=== PATIENT | female | born 1950 | race Caucasian/White ===

== ENCOUNTER 2018-05-25 07:15 | Observation (INO) ==
--- NOTE | 2018-05-25 08:08 | ED ---
HPI General Chief Complaint: Chest Pain Stated Complaint: Chest Pain Complaint Time Seen by Provider: 05/25/18 07:56 Source: patient Mode of arrival: ambulatory Limitations: no limitations History of Present Illness HPI narrative: 68-year-old female states that yesterday morning she developed chest tightness and having a hard time taking a deep breath. She denies prior history of this. She denies other associated symptoms. She states sometimes it goes up into her neck. She denies other migration of the pain. She denies specific modifying factors other than it hurts worse when she breathes. Quality is pressure. Severity is moderate. She denies recurrent history of this. She denies prior cardiac workup. She states that her father had a heart attack in his 60s but denies any other family history. She states she took a full aspirin today. Related Data Home Medications Medication Instructions Recorded Confirmed alendronate 70 mg PO QWEEK 05/25/18 05/25/18 aspirin 325 mg PO DAILY 05/25/18 05/25/18 Allergies Allergy/AdvReac Type Severity Reaction Status Date / Time No Known Allergies Allergy Verified 05/25/18 07:32 Review of Systems ROS: all other systems reviewed are negative [facility] Medical History Medical History Patient denies medical problems (Acute) Surgical History Surgical History History of laparotomy (Acute) History of tubal ligation (Acute) Hx of cholecystectomy (Acute) Social History Social History Substance History: No History of Abuse Second Hand Smoke Exposure: No Smoking Status: Never smoker How Often Do You Have a Drink Containing Alcohol: 2 to 3 times a week Recent Travel in [facility] within the Last 8 Weeks: No Recent Out of Country Travel within the Last 8 Weeks: No Exam Narrative Exam Narrative: GENERAL: 68 y/o female in no apparent distress SKIN: Focused skin assessment warm/dry. HEAD: Atraumatic. Normocephalic. EYES: Pupils equal and round. No scleral icterus. No injection or drainage. ENT: No nasal bleeding or discharge. Mucous membranes pink and moist. NECK: Trachea midline. CARDIOVASCULAR: Regular rate and rhythm. RESPIRATORY: No accessory muscle use. Clear to auscultation. Breath sounds equal bilaterally. GASTROINTESTINAL: Abdomen soft, non-tender, nondistended MUSCULOSKELETAL: No obvious deformities. No clubbing. No cyanosis. NEUROLOGICAL: Awake and alert. No obvious cranial nerve deficits. Motor grossly within normal limits. Normal speech. PSYCHIATRIC: Appropriate mood and affect; insight and judgment normal. Course Reevaluation(s) Reevaluation #1: Given elevated d-dimer will check CT and reevaluate. Patient' s blood pressure dropped after 1 nitroglycerin and she was given IV fluids and it improved Reevaluation #2: Patient updated and agrees to chest pain center observation Initial Documented Vital Signs Temperature 99.8 F H 05/25/18 07:21 Pulse Rate 91 H 05/25/18 07:21 Respiratory Rate 18 05/25/18 07:21 Blood Pressure 162/95 H 05/25/18 07:21 Pulse Oximetry 96 05/25/18 07:21 Last Documented Vital Signs Temperature 97.8 F 05/25/18 10:07 Pulse Rate 82 05/25/18 10:07 Respiratory Rate 16 05/25/18 10:07 Blood Pressure 124/74 05/25/18 10:07 Pulse Oximetry 97 05/25/18 10:07 Medical Decision Making MDM Narrative Medical decision making narrative: will check labs, xr, and dose with nitro and reeval Medical Screen Exam Complete: Yes Emergency Medical Condition: Yes Differential Diagnosis Differential Diagnosis: angina, pe, musculoskeletal.... Lab Data Lab results reviewed: Yes I reviewed the patient's lab results. Result diagrams: 05/25/18 07:21 05/25/18 07:21 Lab Results 05/25/18 05/25/18 05/25/18 Range/Units 07:21 07:21 07:21 WBC 9.1 (4.0-11.0) th/mm3 RBC 4.08 (4.00-5.30) mil/mm3 Hgb 13.2 (11.6-15.3) gm/dL Hct 38.7 (35.0-46.0) % MCV 94.8 (80.0-100.0) fL MCH 32.4 (27.0-34.0) pg MCHC 34.2 (32.0-36.0) % RDW 13.8 (11.6-17.2) % Plt Count 265 (150-450) th/mm3 MPV 8.9 (7.0-11.0) fL Neut % (Auto) 71.0 H (16.0-70.0) % Lymph % (Auto) 17.3 (9.0-44.0) % [place] % (Auto) 9.7 H (0.0-8.0) % Eos % (Auto) 1.2 (0.0-4.0) % Baso % (Auto) 0.8 (0.0-2.0) % Neut # (Auto) 6.5 (1.8-7.7) th/mm3 Lymph # (Auto) 1.6 (1.0-4.8) th/mm3 [place] # (Auto) 0.9 (0.0-0.9) th/mm3 Eos # (Auto) 0.1 (0.0-0.4) th/mm3 Baso # (Auto) 0.1 (0.0-0.2) th/mm3 WBC Differential . Differential Comment Auto diff final PT (9.8-11.6) sec INR Ratio APTT (23.4-31.7) sec D-Dimer Quant (PE/DVT) 1.06 H (0.00-0.50) mg/L FEU Sodium 139 (136-145) meq/L Potassium 4.0 (3.5-5.1) meq/L Chloride 108 H (98-107) meq/L Carbon Dioxide 25.5 (21.0-32.0) meq/L Anion Gap 6 (5-15) meq/L BUN 14 (7-18) mg/dL Creatinine 0.95 (0.50-1.00) mg/dL Estimated GFR 59 L (>89) mL/min Random Glucose 139 H (74-106) mg/dL Calcium 8.8 (8.5-10.1) mg/dL Magnesium (1.5-2.5) mg/dL Total Bilirubin 1.1 H (0.2-1.0) mg/dL AST 31 (15-37) U/L ALT 38 (10-53) U/L Alkaline Phosphatase 63 (45-117) U/L Total Creatine Kinase (26-192) U/L CK-MB (CK-2) (0.5-3.6) ng/mL CK-MB (CK-2) % (0.0-4.0) % Troponin I 0.02 (0.02-0.05) ng/mL Total Protein 8.1 (6.4-8.2) g/dL Albumin 3.9 (3.4-5.0) g/dL 05/25/18 05/25/18 Range/Units 07:21 07:21 WBC (4.0-11.0) th/mm3 RBC (4.00-5.30) mil/mm3 Hgb (11.6-15.3) gm/dL Hct (35.0-46.0) % MCV (80.0-100.0) fL MCH (27.0-34.0) pg MCHC (32.0-36.0) % RDW (11.6-17.2) % Plt Count (150-450) th/mm3 MPV (7.0-11.0) fL Neut % (Auto) (16.0-70.0) % Lymph % (Auto) (9.0-44.0) % [place] % (Auto) (0.0-8.0) % Eos % (Auto) (0.0-4.0) % Baso % (Auto) (0.0-2.0) % Neut # (Auto) (1.8-7.7) th/mm3 Lymph # (Auto) (1.0-4.8) th/mm3 [place] # (Auto) (0.0-0.9) th/mm3 Eos # (Auto) (0.0-0.4) th/mm3 Baso # (Auto) (0.0-0.2) th/mm3 WBC Differential Differential Comment PT 10.0 (9.8-11.6) sec INR 1.0 Ratio APTT 26.1 (23.4-31.7) sec D-Dimer Quant (PE/DVT) (0.00-0.50) mg/L FEU Sodium (136-145) meq/L Potassium (3.5-5.1) meq/L Chloride (98-107) meq/L Carbon Dioxide (21.0-32.0) meq/L Anion Gap (5-15) meq/L BUN (7-18) mg/dL Creatinine (0.50-1.00) mg/dL Estimated GFR (>89) mL/min Random Glucose (74-106) mg/dL Calcium (8.5-10.1) mg/dL Magnesium 2.1 (1.5-2.5) mg/dL Total Bilirubin (0.2-1.0) mg/dL AST (15-37) U/L ALT (10-53) U/L Alkaline Phosphatase (45-117) U/L Total Creatine Kinase 345 H (26-192) U/L CK-MB (CK-2) 1.5 (0.5-3.6) ng/mL CK-MB (CK-2) % 0.4 (0.0-4.0) % Troponin I (0.02-0.05) ng/mL Total Protein (6.4-8.2) g/dL Albumin (3.4-5.0) g/dL Imaging Data Attestation: I personally reviewed and interpreted this imaging study as follows : Radiologist's impression: Chest X-Ray 05/25/18 07:31 CONCLUSION: The lungs are clear. Chest CTA 05/25/18 08:45 CONCLUSION: This study is negative for pulmonary embolism. Discharge Plan Discharge Disposition Patient Disposition: ED Admit(ED Internal Use Only) Discharge Order Discharge Orders: ED Use Only Admit Order (Routine); Ordered 05/25/18 Ordered By: Stacie Valera Discharge Details Diagnosis: Chest pain Physicians Team ED Provider: Stacie Valera Primary Care Provider: Erica Hough Attending Provider: Yonny Underwood Discharge Interventions Interventions: Vital Signs Last Done: 05/25/18 08:54 Status ED Status: Admitted Observation Patient
[2018-05-25 08:14] LABS: Baso # (Auto) 0.1 th/mm3 (0.0-0.2); Baso % (Auto) 0.8 % (0.0-2.0); Eos # (Auto) 0.1 th/mm3 (0.0-0.4); Eos % (Auto) 1.2 % (0.0-4.0); Hematocrit 38.7 % (35.0-46.0); Hemoglobin 13.2 gm/dL (11.6-15.3); Lymph # (Auto) 1.6 th/mm3 (1.0-4.8); Lymph % (Auto) 17.3 % (9.0-44.0); Mean Corpuscular HGB Conc 34.2 % (32.0-36.0); Mean Corpuscular Hemoglobin 32.4 pg (27.0-34.0); Mean Corpuscular Volume 94.8 fL (80.0-100.0); Mean Platelet Volume 8.9 fL (7.0-11.0); Mono # (Auto) 0.9 th/mm3 (0.0-0.9); Mono % (Auto) 9.7 % (0.0-8.0); Neut # (Auto) 6.5 th/mm3 (1.8-7.7); Platelet Count 265 th/mm3 (150-450); Red Blood Count 4.08 mil/mm3 (4.00-5.30); Red Cell Distribution Width 13.8 % (11.6-17.2); White Blood Count 9.1 th/mm3 (4.0-11.0)
--- NOTE | 2018-05-25 08:21 | XR ---
EXAM DATE: 05/25/2018 8:12 AM EST AGE/SEX: 68 years / Female INDICATIONS: Chest pain. CLINICAL DATA: This is the patient's initial encounter. Patient reports that signs and symptoms have been present for 2 days and indicates a pain score of 9/10. MEDICAL/SURGICAL HISTORY: None. None. COMPARISON: No prior exams available for comparison. FINDINGS: A single AP view of the chest demonstrates the lungs to be symmetrically aerated without evidence of mass, infiltrate or effusion. The cardiomediastinal contours are unremarkable. Osseous structures a re intact. CONCLUSION: The lungs are clear. Electronically signed by: Edvin Arcos MD Board Certified Radiologist 05/25/2018 8:20 AM EST
[2018-05-25 08:27] LABS: Activated Partial Thrombo Time 26.1 sec (23.4-31.7)
[2018-05-25 08:36] LABS: Albumin 3.9 g/dL (3.4-5.0); Anion Gap 6 meq/L (5-15); Aspartate Aminotransferase 31 U/L (15-37); Blood Urea Nitrogen 14 mg/dL (7-18); Calcium 8.8 mg/dL (8.5-10.1); Carbon Dioxide 25.5 meq/L (21.0-32.0); Chloride 108 meq/L (98-107); Glomerular Filtration Rate 59 mL/min (>89); Glucose,Random 139 mg/dL (74-106); Sodium 139 meq/L (136-145)
[2018-05-25 08:37] LABS: Magnesium 2.1 mg/dL (1.5-2.5)
[2018-05-25 08:42] LABS: Alanine Aminotransferase 38 U/L (10-53); Alkaline Phosphatase 63 U/L (45-117); Total Protein 8.1 g/dL (6.4-8.2); Troponin I 0.02 ng/mL (0.02-0.05)
[2018-05-25 08:52] LABS: CKMB Percent 0.4 % (0.0-4.0); Creatine Kinase MB 1.5 ng/mL (0.5-3.6)
[2018-05-25] MEDS ORDERED: Sodium Chlor 0.9% Inj 500 ML IV.SIG SCH (09:00)
[2018-05-25 10:08] VITALS: RESP 16
--- NOTE | 2018-05-25 11:07 | CT ---
EXAM DATE: 05/25/2018 11:00 AM EST AGE/SEX: 68 years / Female INDICATIONS: Chest pain since yesterday. CLINICAL DATA: This is the patient's initial encounter. Patient reports that signs and symptoms have been present for 1 day and indicates a pain score of 5/10. MEDICAL/SURGICAL HISTORY: None. Cholecystectomy. Tubal ligation. RADIATION DOSE: 10.75 CTDI (mGy) COMPARISON: [facility], CHEST 1V SINGLE AP, 05/25/2018. . TECHNIQUE: Volumetric scanning was performed using a multi-row detector CT scanner during bolus infu tr of 73 ml Omnipaque 350 (iohexol) nonionic water-soluble contrast as a single exam dose. The liyah a was post processed with a variety of visualization algorithms including full volume maximum intensi ty projection and sliding thin slab reformation. Using automated exposure control and adjustment of the mA and/or kV according to patient size, radiation dose was kept as low as reasonably achievable t o obtain optimal diagnostic quality images. DICOM format image data is available electronically for review and comparison. FINDINGS: Pulmonary Arteries: No filling defects are seen in the pulmonary arteries out to the subsegmental ve ssels. The left and right pulmonary arteries are normal in diameter. Lung: Mild streaky bibasilar parenchymal opacity Effusion: None. Mediastinum: No evidence of mediastinal or hilar adenopathy. Tiny pericardial effusion. Other: The axilla is unremarkable. CONCLUSION: This study is negative for pulmonary embolism. Electronically signed by: Edvin Arcos MD Board Certified Radiologist 05/25/2018 11:06 AM EST
[2018-05-25] MEDS ORDERED: Acetaminophen 500 MG Tablet PO PRN (11:33)
[2018-05-25 12:12] VITALS: BP 151/82; PULSE 83
[2018-05-25 12:18] VITALS: TEMP 97.9
[2018-05-25 12:47] LABS: Creatine Kinase 281 U/L (26-192)
[2018-05-25 13:00] LABS: CKMB Percent 0.4 % (0.0-4.0)
--- NOTE | 2018-05-25 13:20 | P.HPCA ---
History of Present Illness Primary Care Physician: Erica Hough MD Chief Complaint: Chest pain History of Present Illness: 68 year old female without significant medical history resents the emergency room for further evaluation of chest pain. Onset 2 days. Location substernal. Characterized as tightness. Associated symptoms include shallow breathing and dyspnea. No nausea, vomiting, dizziness, or diaphoresis. Duration constant. Inspiration and lying flat makes pain worse. Sitting straight makes the discomfort better. No recent illness the last 4-6 weeks. Endorses intermittent chills last evening, Did not sleep well last night due to discomfort. Denies similar discomfort in the past. No known cardiac disease, hypertension, diabetes, or hyperlipidemia. Lifelong non-smoker. Past cardiac testing No recent cardiac testing. Social history No known hypertension, diabetes, or hyperlipidemia. Lifelong non-smoker. Alcohol socially. No recreational drug use. . 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 - Diagnosis (1) Pericarditis Review of Systems All other systems reviewed negative except as stated in HPI PMFSH - History History Provided By: Patient - Medical History Medical History: Medical History (Last Reviewed 05/25/18 @ 15:36 by ROYER Montanez) Patient denies medical problems - Surgical History Surgical History: Surgical History (Last Reviewed 05/25/18 @ 15:36 by ROYER Montanez) History of laparotomy History of tubal ligation Hx of cholecystectomy - Social History I have reviewed the patient's Social History: Yes - Tobacco History Second Hand Smoke Exposure: No Tobacco Use In Past 30 Days: No Smoking Status: Never smoker - Alcohol History How Often Do You Have a Drink Containing Alcohol: 2 to 3 times a week - Substance Use History Substance History: No History of Abuse - Travel History Recent Travel in the [facility] Within the Last 8 Weeks: No Recent Travel Out of the Country Within the Last 8 Weeks: No - Immunization History Tetanus Immunization: >5 Years Medications and Allergies Active Medications: Active Medications Acetaminophen (Tylenol) 500 mg PO Q4H PRN PRN Reason: HEADACHE Clonidine HCl (Catapres) 0.1 mg PO ONCE ONE Stop: 05/25/18 13:16 Dexamethasone Sodium Phosphate (Decadron Inj) 8 mg IV.PUSH ONCE ONE Stop: 05/25/18 13:20 Ondansetron HCl (Zofran Inj) 4 mg IV.PUSH Q6H PRN PRN Reason: NAUSEA Sodium Chloride (Ns Flush) 2 ml IV.FLUSH UNSCH PRN PRN Reason: FLUSH AFTER USING IV ACCESS Last Admin: 05/25/18 07:50 Dose: 2 ml Sodium Chloride (Ns Flush) 2 ml IV.FLUSH BID YORDAN Sodium Chloride (Ns Flush) 2 ml IV.FLUSH PRN PRN PRN Reason: FLUSH AFTER USING IV ACCESS Allergies Allergy/AdvReac Type Severity Reaction Status Date / Time No Known Allergies Allergy Verified 05/25/18 07:32 Home Medications Medication Instructions Recorded Confirmed Type alendronate 70 mg PO QWEEK 05/25/18 05/25/18 History aspirin 325 mg PO DAILY 05/25/18 05/25/18 History Exam Vital signs: Vital Signs 05/25/18 07:21 05/25/18 07:31 05/25/18 07:34 Temperature 99.8 F H 97.8 F Pulse Rate 91 H 68 Respiratory Rate 18 17 Blood Pressure 162/95 H 168/86 H Pulse Oximetry 96 98 97 05/25/18 08:17 05/25/18 08:34 05/25/18 08:54 Temperature 98 F 97.9 F Pulse Rate 70 82 Respiratory Rate 17 17 17 Blood Pressure 68/45 L 106/70 Pulse Oximetry 97 97 05/25/18 10:07 05/25/18 11:33 05/25/18 11:53 Temperature 97.8 F 97.8 F 97.9 F Pulse Rate 82 78 80 Respiratory Rate 16 16 16 Blood Pressure 124/74 128/77 124/77 Pulse Oximetry 97 99 99 05/25/18 12:00 Temperature Pulse Rate 83 Respiratory Rate 16 Blood Pressure 151/82 H Pulse Oximetry 93 L Intake & Output 05/24/18 05/25/18 05/25/18 18:59 06:59 18:59 Intake Total 500 / 500 Balance 500 / 500 Weight 76.204 kg Intake: IV 500 / 500 NS Inj 500 ML @ 1000 mls/hr IV. 500 / 500 SIG BOLUS YORDAN Rx#:[id number] Narrative: GENERAL: Alert WN, WD, NAD, pleasant, female HEAD: NC, AT EYES: Sclera clear, conjunctiva without injection ENT: Mucous membranes pink and moist NECK: Supple, no masses, trachea midline CV: RRR, without murmur, rub, gallop, no JVD, S1-S2. No carotid bruits. Chest wall diffusely tender with palpation. RESP: Clear lungs throughout bilateral, no crackles, wheeze, rhonchi, symmetrical chest rise, nonlabored, able to speak in full sentences ABD: Soft, NT, ND, no masses, positive bowel tones EXT: Pulses +2x4, no dependent edema MS: Normal tone x4 extremities, nontender, no obvious deformities, full range of motion NEURO: Motor strength 5/5 PSYCH: A+O x3, pleasant affect, appropriate speech, mood, insight and judgment SKIN: Normal turgor, normal texture, no lesions, no rashes, brisk cap refill, even hair distribution Results 05/25/18 07:21 05/25/18 07:21 Cardiac Enzymes 05/25/18 05/25/18 05/25/18 Range/Units 07:21 07:21 11:41 AST 31 (15-37) U/L CK-MB (CK-2) 1.5 Less than 1.0 (0.5-3.6) ng/mL Troponin I 0.02 Less than 0.02 L (0.02-0.05) ng/mL Coagulation 05/25/18 Range/Units 07:21 PT 10.0 (9.8-11.6) sec APTT 26.1 (23.4-31.7) sec CBC 05/25/18 Range/Units 07:21 WBC 9.1 (4.0-11.0) th/mm3 RBC 4.08 (4.00-5.30) mil/mm3 Hgb 13.2 (11.6-15.3) gm/dL Hct 38.7 (35.0-46.0) % Plt Count 265 (150-450) th/mm3 Neut # (Auto) 6.5 (1.8-7.7) th/mm3 Lymph # (Auto) 1.6 (1.0-4.8) th/mm3 [place] # (Auto) 0.9 (0.0-0.9) th/mm3 Eos # (Auto) 0.1 (0.0-0.4) th/mm3 Baso # (Auto) 0.1 (0.0-0.2) th/mm3 Comprehensive Metabolic Panel 05/25/18 Range/Units 07:21 Sodium 139 (136-145) meq/L Potassium 4.0 (3.5-5.1) meq/L Chloride 108 H (98-107) meq/L Carbon Dioxide 25.5 (21.0-32.0) meq/L BUN 14 (7-18) mg/dL Creatinine 0.95 (0.50-1.00) mg/dL Calcium 8.8 (8.5-10.1) mg/dL AST 31 (15-37) U/L ALT 38 (10-53) U/L Alkaline Phosphatase 63 (45-117) U/L Total Protein 8.1 (6.4-8.2) g/dL Albumin 3.9 (3.4-5.0) g/dL Intake and Output 05/24/18 05/25/18 05/25/18 22:59 06:59 14:59 Intake Total 500 / 500 Balance 500 / 500 Intake: IV 500 / 500 NS Inj 500 ML @ 1000 mls/hr IV. 500 / 500 SIG BOLUS YORDAN Rx#:[id number] Other: Weight 76.204 kg Patient Weight 05/26/18 06:59 Weight 76.204 kg - Imaging and Cardiology Imaging: Impressions Chest X-Ray 05/25/18 07:31 CONCLUSION: The lungs are clear. Chest CTA 05/25/18 08:45 CONCLUSION: This study is negative for pulmonary embolism. EKG interpretations - EKG EKG results cardiology: sinus rhythm Caprini VTE Risk Assessment Caprini VTE Risk Assessment: Moderate/High Risk (score >= 2) Caprini Risk Assessment Model: Point Value = 1 Point Value = 2 Point Value = 3 Point Value = 5 Age 41-60 Minor surgery BMI > 25 kg/m2 Swollen legs Varicose veins or History of unexplained or recurrent spontaneous Oral contraceptives or hormone replacement Sepsis (< 1 month) Serious lung disease, including pneumonia (< 1 month) Abnormal pulmonary function Acute myocardial infarction Congestive heart failure (< 1 month) History of inflammatory bowel disease Medical patient at bed rest Age 61-74 Arthroscopic surgery Major open surgery (> 45 min) Laparoscopic surgery (> 45 min) Malignancy Confined to bed (> 72 hours) Immobilizing plaster cast Central venous access Age >= 75 History of VTE Family history of VTE Factor V Leiden Prothrombin [id number] Lupus anticoagulant Anticardiolipin antibodies Elevated serum homocysteine Heparin-induced thrombocytopenia Other congenital or acquired thrombophilia Stroke (< 1 month) Elective arthroplasty Hip, pelvis, or leg fracture Acute spinal cord injury (< 1 month) Prophylaxis Regimen: Total Risk Factor Score Risk Level Prophylaxis Regimen 0-1 Low Early ambulation 2 Moderate Order ONE of the following: *Sequential Compression Device (SCD) *Heparin 5000 units SQ BID 3-4 Higher Order ONE of the following medications: *Heparin 5000 units SQ TID *Enoxaparin/Lovenox 40 mg SQ daily (WT < 150 kg, CrCl > 30 mL/min) *Enoxaparin/Lovenox 30 mg SQ daily (WT < 150 kg, CrCl > 10-29 mL/min) *Enoxaparin/Lovenox 30 mg SQ BID (WT < 150 kg, CrCl > 30 mL/min) AND/OR *Sequential Compression Device (SCD) 5 or more Highest Order ONE of the following medications: *Heparin 5000 units SQ TID (Preferred with Epidurals) *Enoxaparin/Lovenox 40 mg SQ daily (WT < 150 kg, CrCl > 30 mL/min) *Enoxaparin/Lovenox 30 mg SQ daily (WT < 150 kg, CrCl > 10-29 mL/min) *Enoxaparin/Lovenox 30 mg SQ BID (WT < 150 kg, CrCl > 30 mL/min) AND *Sequential Compression Device (SCD) Assessment and Plan - Assessment (1) Pericarditis Code(s): I31.9 - Disease of pericardium, unspecified Status: Acute Plan: Admitted chest pain center. Seen and evaluated by Dr. Yonny Argueta. Symptoms clinically represent pericarditis. With the elevation on EKG. CT pulmonary angiogram also shows tiny pericardial effusion. Decadron 8 mg IV x1 dose now. Reevaluate in 2 hours. Plans to discharge home later this afternoon with Medrol Dosepak and follow with primary care provider in 1 week.
[2018-05-25 15:18] LABS: Creatine Kinase 268 U/L (26-192)
[2018-05-25 15:30] LABS: CKMB Percent 0.4 % (0.0-4.0)
--- NOTE | 2018-05-25 16:35 | ECG ---
Date Performed: 05/25/2018 Time Performed: 07:30:42 PTAGE: 68 years EKG: Sinus rhythm NORMAL ECG Since PREVIOUS TRACING , no significant change noted PREVIOUS TRACIN05/27/2006 08.56 DOCTOR: Yonny Underwood Interpretating Date/Time 05/25/2018 16:34:31
[2018-05-25 16:42] VITALS: O2SAT 95
--- NOTE | 2018-05-25 16:54 | ECG ---
Date Performed: 05/25/2018 Time Performed: 11:54:14 PTAGE: 68 years EKG: Sinus rhythm NORMAL ECG PREVIOUS TRACING : 05/25/2018 07.30 Since previous tracing, no significant change noted DOCTOR: Yonny Underwood Interpretating Date/Time 05/25/2018 16:53:26
--- NOTE | 2018-05-25 17:07 | ECG ---
Date Performed: 05/25/2018 Time Performed: 14:49:37 PTAGE: 68 years EKG: Sinus rhythm WITH SHORT OK INTERVAL ST elevation c/w pericarditis PREVIOUS TRACING : 05/25/2018 07.30 Since previous tracing, no significant change noted DOCTOR: Yonny Underwood Interpretating Date/Time 05/25/2018 17:07:12
== END 2018-05-25 17:41 | disposition home or self-care (01) ==
LOC: NEPC 07:15 → NEDA 07:15 → NEPGCP 11:55
DX: R06.00 Dyspnea, unspecified; Z82.49 Family history of ischemic heart disease and other diseases of the circulatory system; I31.9 Disease of pericardium, unspecified; R79.89 Other specified abnormal findings of blood chemistry; Z79.82 Long term (current) use of aspirin; I31.3 Pericardial effusion (noninflammatory)